=== PATIENT | female | born 1940 | race African-American/Black ===

== ENCOUNTER → 2016-10-08 | Outpatient (CLI) | payer OTHER ==
[~2016-10-08] VITALS: Ht 162.6 cm; Wt 106.1 kg
[~2016-10-08] MED LIST: ADULT LOW DOSE81 MG PO; ALPHA LIPOIC A100 MG; ANTIVERT25 M1 PO; ANTIVERT25 MG PO; ASPIR 8181 MG PO; AVELOX 400 MG400 M1 PO; BENAZEPRIL HCL40 MG PO; CHLORDIAZEPOXID10 MG PO; CIPROFLOXACIN500 M1 PO; COLACE100 MG PO; COUMADIN 5 MG TA5 M1 PO; CYANOCOBALAM1000 MCG PO; CYCLOBENZAPRINE10 MG; DESYREL50 MG; GLUCOPHAGE XR500 MG PO; GLUCOPHAGE500 MG PO; GLUCOSAMINE S1000 M2 PO; GORDO-VITE E15 GM; HYDROCODONE-AP1 EA11 PO; HYDROCODONE-APA1 TA1 PO; IBUPROFEN 800800 M1 PO; LIBRIUM10 MG; MEDROL DOSPAK21 TAB PO; MIRALAX17 GM PO; MIRALAX255 GM PO; MOBIC15 MG PO; MOBIC7.5 MG PO; NAMENDA 10 MG T10 MG PO; NOLVADEX20 MG PO; NORCO 10-325 T1 EACH PO; NORCO 5-325 TA1 EACH PO; NORCO 7.5-3251 EACH PO; NUVIGIL; REQUIP0.5 MG PO; VITAMIN B-1250 MC3; VITAMIN B-12500 MCG PO; VITAMIN D 11000 UNIT PO; VITAMIN D 5050000 I1 PO; VITAMIN D400 UNIT PO; VITAMIN E1000 UNI2 PO; VITAMIN E400 UNI3 PO; ZOFRAN ODT4 MG PO
--- NOTE | ~2016-10-08 | HPC ---
[facility] [address] [place] [address] PAIN MANAGEMENT CONSULTATION Name: PITTMANCLAYTONAviva WAGNER Room #: [facility] Paulina#: [id number] Admission: 10/08/16 Attend Phys: Sandro France DO Discharge: Date of : 40 Report #: [id number] THIS REPORT FOR: //name// CC: Sariah France The patient is a 76-year-old female, prior seen in the pain clinic in November 2014. She was actually seen in consultation at that time. She is status post bilateral total knee arthroplasties, was having ongoing pain in her hip, I had referred the patient to Dr. Garvey regarding surgical intervention for a subchondral insufficiency fracture. The patient was lost to follow up. She returns to pain clinic today stating she did have surgery on that right hip short period after we saw her. She was apparently also found to have a pelvic fracture. Nonetheless, this has all been treated appropriately and she returns with a new complaint that being a "quivering" burning dysesthesia in the right lateral thigh seems to be quite problematic at night, really does not bother her during the day. The patient notes no radicular symptoms. No bowel or bladder continence changes. Gait is not impeded. PHYSICAL EXAMINATION: Shows a 76-year-old female, overweight with a BMI of 40.1 kg/m2. Blood pressure 147/69, pulse 70, and respirations are 14. Alert and oriented to person, place and time, judged to be a reasonable historian. Rises from chair using armrest. Gait is tandem. Lower extremity strength is objectively symmetric. Straight leg raise is negative. Patellar and Achilles reflexes are diminished, but are preserved. Passive rotation of the hip does not exacerbate pain. She has some subjective paresthesia in the right lateral thigh, but is fairly nominal. Symptoms are compatible with many patients we have seen status post total hip arthroplasties. ASSESSMENT I believe symptoms are primarily neuropathic, component of restless leg syndrome. RECOMMENDATIONS: I spent a prolonged visit with the patient today from 10:35-11:00 a.m., greater than 50% of the 25-minute visit was spent counseling the patient. We have elected to start the patient on Requip 0.5 at bedtime, gradually titrating on a 5-day interval up to a total of 2 mg (4 tablets) at bedtime. Follow up in 30 days to evaluate efficacy. If she is doing well with this medication, we will simply write for a 30-day prescription with multiple refills of the appropriate dose of Requip. If however, this does not afford efficacy, we may consider trialing a membrane stabilizing agent such as gabapentin or Lyrica. <ELECTRONICALLY SIGNED> By: Sandro France DO 10/11/16 [id number] Sandro France DO /nt
[2016-10-08 10:33] VITALS: BP 147/69
== END ==
LOC: PAIN 07:04
DX: G25.81 Restless legs syndrome (principal); I10 Essential (primary) hypertension

== ENCOUNTER → 2017-02-15 | Outpatient (CLI) | payer OTHER | LOC: HYPER 08:04 | DX: T81.89XA Other complications of procedures, not elsewhere classified, initial encounter (principal); E11.628 Type 2 diabetes mellitus with other skin complications; E11.40 Type 2 diabetes mellitus with diabetic neuropathy, unspecified; I25.10 Atherosclerotic heart disease of native coronary artery without angina pectoris; I89.0 Lymphedema, not elsewhere classified; F41.9 Anxiety disorder, unspecified; I10 Essential (primary) hypertension; E11.36 Type 2 diabetes mellitus with diabetic cataract; Z86.03 Personal history of neoplasm of uncertain behavior; Z86.718 Personal history of other venous thrombosis and embolism; Z86.711 Personal history of pulmonary embolism; Z87.891 Personal history of nicotine dependence; Z72.89 Other problems related to lifestyle; Y83.8 Other surgical procedures as the cause of abnormal reaction of the patient, or of later complication, without mention of misadventure at the time of the procedure ==

== ENCOUNTER → 2017-03-15 | Outpatient (CLI) | payer OTHER | LOC: HYPER 07:04 | DX: S71.001D Unspecified open wound, right hip, subsequent encounter (principal); I25.10 Atherosclerotic heart disease of native coronary artery without angina pectoris; E11.628 Type 2 diabetes mellitus with other skin complications; E11.40 Type 2 diabetes mellitus with diabetic neuropathy, unspecified; I89.0 Lymphedema, not elsewhere classified; E11.36 Type 2 diabetes mellitus with diabetic cataract; E11.42 Type 2 diabetes mellitus with diabetic polyneuropathy; F41.9 Anxiety disorder, unspecified; I10 Essential (primary) hypertension; Z85.3 Personal history of malignant neoplasm of breast; Z86.718 Personal history of other venous thrombosis and embolism; Z86.711 Personal history of pulmonary embolism; Z87.891 Personal history of nicotine dependence; Z72.89 Other problems related to lifestyle; X58.XXXD Exposure to other specified factors, subsequent encounter ==

== ENCOUNTER → 2017-04-05 | Outpatient (CLI) | payer OTHER | LOC: HYPER 07:14 | DX: S71.001D Unspecified open wound, right hip, subsequent encounter (principal); E11.628 Type 2 diabetes mellitus with other skin complications; E11.40 Type 2 diabetes mellitus with diabetic neuropathy, unspecified; I89.0 Lymphedema, not elsewhere classified; I25.10 Atherosclerotic heart disease of native coronary artery without angina pectoris; Z86.718 Personal history of other venous thrombosis and embolism; Z86.711 Personal history of pulmonary embolism; F41.9 Anxiety disorder, unspecified; G89.29 Other chronic pain; M20.40 Other hammer toe(s) (acquired), unspecified foot; I10 Essential (primary) hypertension; E11.42 Type 2 diabetes mellitus with diabetic polyneuropathy; E11.36 Type 2 diabetes mellitus with diabetic cataract; Z85.3 Personal history of malignant neoplasm of breast; Z87.891 Personal history of nicotine dependence; Z72.89 Other problems related to lifestyle; X58.XXXD Exposure to other specified factors, subsequent encounter ==

== ENCOUNTER → 2017-04-13 | Outpatient (CLI) | payer OTHER | LOC: RAD 07:55 | DX: Z12.31 Encounter for screening mammogram for malignant neoplasm of breast (principal) ==

== ENCOUNTER → 2017-04-26 | Outpatient (CLI) | payer OTHER | LOC: HYPER 07:00 | DX: T81.89XD Other complications of procedures, not elsewhere classified, subsequent encounter (principal); E11.628 Type 2 diabetes mellitus with other skin complications; I89.0 Lymphedema, not elsewhere classified; I25.10 Atherosclerotic heart disease of native coronary artery without angina pectoris; E11.40 Type 2 diabetes mellitus with diabetic neuropathy, unspecified; Z86.718 Personal history of other venous thrombosis and embolism; Z86.711 Personal history of pulmonary embolism; F41.9 Anxiety disorder, unspecified; G89.29 Other chronic pain; M20.40 Other hammer toe(s) (acquired), unspecified foot; I10 Essential (primary) hypertension; E11.42 Type 2 diabetes mellitus with diabetic polyneuropathy; F32.9 Major depressive disorder, single episode, unspecified; E11.36 Type 2 diabetes mellitus with diabetic cataract; Z85.3 Personal history of malignant neoplasm of breast; Z87.891 Personal history of nicotine dependence; Z72.89 Other problems related to lifestyle; Y83.8 Other surgical procedures as the cause of abnormal reaction of the patient, or of later complication, without mention of misadventure at the time of the procedure ==

== ENCOUNTER → 2018-04-17 | Outpatient (CLI) | payer OTHER | LOC: RAD 01:12 | DX: Z12.31 Encounter for screening mammogram for malignant neoplasm of breast (principal); I10 Essential (primary) hypertension; E11.9 Type 2 diabetes mellitus without complications; E66.01 Morbid (severe) obesity due to excess calories; Z96.652 Presence of left artificial knee joint; Z87.891 Personal history of nicotine dependence; Z88.0 Allergy status to penicillin ==

== ENCOUNTER → 2019-05-23 | Outpatient (CLI) | payer OTHER | LOC: RAD 02:47 | DX: Z12.31 Encounter for screening mammogram for malignant neoplasm of breast (principal) ==

== ENCOUNTER → 2019-06-07 | Outpatient (CLI) | payer OTHER | LOC: RAD 01:18 | DX: N63.23 Unspecified lump in the left breast, lower outer quadrant (principal); R92.0 Mammographic microcalcification found on diagnostic imaging of breast; N64.89 Other specified disorders of breast; Z85.3 Personal history of malignant neoplasm of breast ==

== ENCOUNTER → 2020-03-17 | Outpatient (CLI) | payer OTHER | LOC: RAD 08:11 | PROVIDERS: ATTEND Family Medicine | DX: R92.8 Other abnormal and inconclusive findings on diagnostic imaging of breast (principal) ==

== ENCOUNTER → 2020-12-10 | Outpatient (CLI) | payer OTHER | LOC: BC 08:37 | PROVIDERS: ATTEND Family Medicine | DX: Z12.31 Encounter for screening mammogram for malignant neoplasm of breast (principal) ==

== ENCOUNTER → 2020-12-23 | Outpatient (CLI) | payer OTHER | LOC: ULTRA 07:47 | PROVIDERS: ATTEND Family Medicine | DX: N63.20 Unspecified lump in the left breast, unspecified quadrant (principal) ==